=== PATIENT | female | born 1985 | race Caucasian/White ===

== ENCOUNTER → 2018-02-02 | Outpatient (CLI) | payer BC ==
--- NOTE | 2018-02-02 14:07 | FL ---
EXAMINATION TYPE: FL small bowel follow through DATE OF EXAM: 02/02/2018 CLINICAL HISTORY: Persistent diarrhea. TECHNIQUE: A single contrast small bowel follow through is performed utilizing barium. 16 ounces o f barium was administered with 23 seconds of fluoroscopy time and 10 images saved. COMPARISON: None FINDINGS: Web Press Operator image of the abdomen shows no gross abnormality. Cholecystectomy clips are noted wit h additional surgical clip at the level of the right pedicle of L5. The small bowel study shows normal transit to the colon in less than 3 hours and 15 minutes. There i s a normal mucosal fold pattern throughout the small bowel. There is no evidence of any stricture or filling defect noted. The terminal ileum is spotted and appears unremarkable. IMPRESSION: Unremarkable small bowel follow through. No radiologic evidence of celiac disease, focal stricture, sequela of Crohn's disease, or abnormal transit time.
== END | disposition home or self-care (01) ==
LOC: RADFLMAIN 09:02
PROVIDERS: ATTEND Internal Medicine Gastroenterology
DX: R19.7 Diarrhea, unspecified (principal)
CPT/HCPCS: 74250

== ENCOUNTER 2018-03-01 08:32 | Day surgery (SDC) | payer BC ==
[2018-02-25 13:51] VITALS: BMI 27.0
[~2018-03-01 08:32] MED LIST: LACTATED RINGERS 1,000 ML IV SCH; LIDOCAINE 1% 20 ML VIAL (10MG/ML) FOR IV START INTRADERMA PRN
[2018-03-01 08:58] VITALS: RESP 16; TEMP 97.4
[2018-03-01] MEDS ORDERED: LIDOCAINE 1% INJ 10MG/ML (20 ML MDV) ONE (09:24)
[2018-03-01] MEDS ORDERED: MIDAZOLAM 2 MG/2 ML VIAL ONE (09:24)
[2018-03-01] MEDS ORDERED: PROPOFOL 10 MG/ML 20 ML VIAL IV ONE (09:24)
--- NOTE | 2018-03-01 10:00 | P.PCN ---
Date of Procedure: 03/01/18 Procedure(s) Performed: Procedure: Colonoscopy and biopsy. Preoperative diagnosis: Abdominal pain and diarrhea. Postoperative diagnosis: 1. Exam of the colon and terminal ileum within normal limits. 2. Multiple biopsies obtained from the terminal ileum and randomly from the colon. Preparation: HalfLytely prep. Sedation: Was provided by anesthesia. Brief clinical history: The patient is a 32-year-old female who was evaluated in our office last month regarding abdominal pains and diarrhea since 2010. She had prior upper endoscopy and small bowel studies. This evaluation is planned to rule out inflammatory bowel disease or other pathology. Procedure: With the patient on her left lateral decubitus position and after informed consent and adequate sedation, the perianal area was inspected and it did not show any fissures or fistulas. There were no masses felt on digital rectal examination. The Olympus CFQ 160L video colonoscope was then inserted in the rectum in the usual fashion and advanced to the cecum. I intubated the ileocecal valve and examined the terminal ileum. Terminal a right colon appeared healthy with no edema, erythema, friability, ulceration, exudation or spontaneous bleeding. No polyps or tumors were seen or any obvious diverticular disease. I obtained biopsies from the terminal ileum and randomly from the colon then I retroflexed the endoscope in the rectum before the endoscope was withdrawn. The patient tolerated the procedure well. Plan: The patient was reassured. She is scheduled to follow-up in our office next week. Further plans will be made based on her course and biopsy results. We will keep you updated on her progress.
[2018-03-01 10:12] VITALS: BP 129/83; PULSE 76
== END 2018-03-01 10:37 | disposition home or self-care (01) ==
LOC: ORWHC2ENDO 08:32
DX: R10.9 Unspecified abdominal pain (principal); R19.7 Diarrhea, unspecified; R19.4 Change in bowel habit; K21.9 Gastro-esophageal reflux disease without esophagitis; Z79.1 Long term (current) use of non-steroidal anti-inflammatories (NSAID); Z79.899 Other long term (current) drug therapy; Z88.5 Allergy status to narcotic agent
CPT/HCPCS: 81025; 88305; 45380; J2250; J2001; J2704